=== PATIENT | female | born 1985 | race African-American/Black ===

== ENCOUNTER 2017-02-02 13:02 | Emergency (ER) | payer OTHER ==
[~2017-02-02] VITALS: Ht 149.9 cm; Wt 51.7 kg
[~2017-02-02 13:02] MED LIST: CYCLOBENZAPRINE10 M7 PO; FLEXERIL PO; MOTRIN800 MG PO; NEURONTIN300 MG PO; NORCO 10/325 MG1 TAB PO
[2017-02-02 13:30] VITALS: BP 127/71
--- NOTE | 2017-02-02 17:20 | NUR ---
PATIENT CALLED FROM LOBBY AT THIS TIME NO ANSWER PATIENT IS LWBS.
== END 2017-02-02 17:20 | disposition left against medical advice (07) ==
LOC: MED 13:02
DX: M79.645 Pain in left finger(s) (principal); Z53.21 Procedure and treatment not carried out due to patient leaving prior to being seen by health care provider

== ENCOUNTER 2017-10-27 13:16 | Emergency (ER) | payer OTHER ==
[~2017-10-27] VITALS: Ht 149.9 cm; Wt 50.0 kg
[~2017-10-27 13:16] MED LIST changes: +ACET-787 PO; +CYCL10TA79 PO; -CYCLOBENZAPRINE10 M7 PO; +GABA300C PO; +IBUP-974 PO; -MOTRIN800 MG PO; -NEURONTIN300 MG PO; -NORCO 10/325 MG1 TAB PO
[2017-10-27 13:27] VITALS: BP 150/80
--- NOTE | 2017-10-27 15:40 | NUR ---
PATIENT TO BED 12.
--- NOTE | 2017-10-27 15:41 | NUR ---
32/F BIB SELF C/O COUGH, FLU SYMPTOMS X 8 DAYS. PT ALSO C/O ABDOMINAL PAIN & N/V/D SINCE TUESDAY. HX 3 BULGING DISC, CVA (AGE 23), NM (APRIL). SKIN IS PINK/WARM/DRY; AAOX4 WITH EVEN AND STEADY GAIT; LUNGS CLEAR BL; PT DENIES ANY FEVER, CP, SOB AT THIS TIME; PATIENT STATES PAIN OF90/10 AT THIS TIME; PATIENT POSITIONED FOR COMFORT; HOB ELEVATED; BEDRAILS UP X2; BED DOWN. ER MD MADE AWARE OF PT STATUS.
--- NOTE | 2017-10-27 16:17 | NUR ---
Patient being evaluated by DR PUENTE at bedside.
[2017-10-27] MEDS ORDERED: KETOROLAC 60 MG/2 ML VIAL IM ONE (16:25)
[2017-10-27] MEDS ORDERED: ONDANSETRON 4 MG ODT PO ONE (16:25)
[2017-10-27 17:15] VITALS: BP 104/73
--- NOTE | 2017-10-27 17:15 | NUR ---
Patient discharged with v/s stable. Written and verbal after care instructions given and explained. Patient alert, oriented and verbalized understanding of instructions. Ambulatory with steady gait. All questions addressed prior to discharge. ID band removed. Patient advised to follow up with PMD. Rx of CIPRO, ZOFRAN & MOTRIN given. Patient educated on indication of medication including possible reaction and side effects. Opportunity to ask questions provided and answered.
== END 2017-10-27 17:15 | disposition home or self-care (01) ==
LOC: MED 13:16
DX: R10.13 Epigastric pain (principal); R11.2 Nausea with vomiting, unspecified; R19.7 Diarrhea, unspecified; Z88.8 Allergy status to other drugs, medicaments and biological substances
CPT/HCPCS: 81002; 81025; 96372; 99283; J1885; S0119

== ENCOUNTER 2019-04-14 03:45 | Emergency (ER) | payer OTHER ==
[~2019-04-14] VITALS: Ht 149.9 cm; Wt 54.4 kg
[2019-04-14 04:02] VITALS: BP 116/76
--- NOTE | 2019-04-14 04:02 | NUR ---
AMBULATED TO ER BED 2
--- NOTE | 2019-04-14 04:10 | NUR ---
PT CAME TO ER C/O OF COUGH X2 WEEKS. PER PT COUGH IS PRODUCTIVE WITH GREEN PHLEGM. PT STATED "I VOMITED X4 TODAY AND VOMITED BLOOD." PT C/O OF THROAT PAIN 9/10, BURNING. PT DOES NOT HAVE FEVER. DENIES N/V/D. MED HX: CVA, DEPRESSION, AND ANXIETY. SAFETY MEASURES IN PLACE. WAITING FOR ERMD TO EVALUATE PT.
[2019-04-14] MEDS ORDERED: IBUPROFEN 800 MG TAB PO ONE (04:20)
[2019-04-14] MEDS ORDERED: AZITHROMYCIN 250 MG TAB PO ONE (04:20)
[2019-04-14] MEDS ORDERED: LIDOCAINE VISCOUS 2% 20 ML UDC PO ONE (04:20)
--- NOTE | 2019-04-14 04:20 | NUR ---
ERMD AT BEDSIDE
[2019-04-14 04:45] VITALS: BP 116/76
--- NOTE | 2019-04-14 04:57 | NUR ---
Patient discharged with v/s stable. Written and verbal after care instructions given and explained. PT WAS ENCOURAGED TO DRINK FLUIDS, REST, AND TAKE MEDICATIONS PRESCRIBED. Patient alert, oriented and verbalized understanding of instructions. Ambulatory with steady gait. All questions addressed prior to discharge. ID band removed. Patient advised to follow up with PMD. Rx of LIDOCAINE, AZITHROMYCIN, MOTRIN, AND PROMETHAZINE WAS given. Patient educated on indication of medication including possible reaction and side effects. Opportunity to ask questions provided and answered.
== END 2019-04-14 04:45 | disposition home or self-care (01) ==
LOC: MED 03:45
DX: J02.8 Acute pharyngitis due to other specified organisms (principal); Z88.8 Allergy status to other drugs, medicaments and biological substances; Z79.1 Long term (current) use of non-steroidal anti-inflammatories (NSAID); Z79.899 Other long term (current) drug therapy
CPT/HCPCS: 99284

== ENCOUNTER 2021-01-08 15:39 | Emergency (ER) | payer OTHER ==
[~2021-01-08] VITALS: Ht 157.5 cm; Wt 56.7 kg
[~2021-01-08 15:39] MED LIST changes: -ACET-787 PO; +HYDR-5191 PO
[2021-01-08 15:43] VITALS: BP 141/67
--- NOTE | 2021-01-08 16:00 | NUR ---
Patient is a 35 y/o female c/c abnormal lab tests; patient referred by PMD. Patient is 12 weeks . Patient denies n/v/d, fever, chills, CP, SOB, headache, dizziness or blurry vision. PMH: htn Meds: n/a Allergies: nalbuphine, thithixene
--- NOTE | 2021-01-08 16:10 | NUR ---
Provider at the bedside evaluating patient.
--- NOTE | 2021-01-08 16:17 | NUR ---
graphic arts technician at the bedside.
[2021-01-08] MEDS ORDERED: PENICILLIN G BENZATHINE L-A 1.2 MU/2 ML SYR IM ONE (16:20)
[2021-01-08 16:47] VITALS: BP 141/67
--- NOTE | 2021-01-08 16:48 | NUR ---
Patient discharged with v/s stable. Written and verbal after care instructions given and explained. Patient verbalized understanding. Ambulatory with steady gait. All questions addressed prior to discharge. Advised to follow up with PMD.
== END 2021-01-08 16:48 | disposition home or self-care (01) ==
LOC: MED 15:39
DX: O98.111 Syphilis complicating pregnancy, first trimester (principal); I10 Essential (primary) hypertension; Z3A.11 11 weeks gestation of pregnancy; Z86.73 Personal history of transient ischemic attack (TIA), and cerebral infarction without residual deficits; Z88.8 Allergy status to other drugs, medicaments and biological substances
CPT/HCPCS: 96372; 99283; J0561

== ENCOUNTER 2021-01-15 14:41 | Emergency (ER) | payer OTHER ==
[~2021-01-15] VITALS: Ht 149.9 cm; Wt 55.3 kg
[2021-01-15 14:50] VITALS: BP 113/66
[2021-01-15] MEDS ORDERED: PENICILLIN G BENZATHINE L-A 1.2 MU/2 ML SYR IM ONE (14:55)
--- NOTE | 2021-01-15 15:33 | NUR ---
PT PRESENTS FOR SECOND DOSE OF ANTIBACTERIAL SHOT FOR SYPHILIS INFECTION. PATIENT IS 12 WEEKS AT THIS TIME. PT IS ASYMPTOMATIC, DENIES ANY VAGINAL BLEEDING OR ANY ABD PAIN.
[2021-01-15 15:38] VITALS: BP 113/66
== END 2021-01-15 15:39 | disposition home or self-care (01) ==
LOC: MED 14:41
DX: O98.111 Syphilis complicating pregnancy, first trimester (principal); I10 Essential (primary) hypertension; Z86.73 Personal history of transient ischemic attack (TIA), and cerebral infarction without residual deficits; Z88.8 Allergy status to other drugs, medicaments and biological substances
CPT/HCPCS: 96372; 99283; J0561

== ENCOUNTER 2021-01-22 14:59 | Emergency (ER) | payer OTHER ==
[~2021-01-22] VITALS: Ht 157.5 cm; Wt 54.4 kg
[2021-01-22 15:02] VITALS: BP 129/78
[2021-01-22] MEDS ORDERED: PENICILLIN G BENZATHINE L-A 1.2 MU/2 ML SYR IM ONE (15:50)
[2021-01-22 16:13] VITALS: BP 129/78
== END 2021-01-22 16:14 | disposition home or self-care (01) ==
LOC: MED 14:59
DX: A53.9 Syphilis, unspecified (principal); R03.0 Elevated blood-pressure reading, without diagnosis of hypertension; Z86.73 Personal history of transient ischemic attack (TIA), and cerebral infarction without residual deficits; Z88.8 Allergy status to other drugs, medicaments and biological substances; Z79.899 Other long term (current) drug therapy
CPT/HCPCS: 96372; 99283; J0561

== ENCOUNTER 2021-07-24 06:00 | Inpatient (IN) | payer OTHER, SELFPAY ==
[~2021-07-24] VITALS: Ht 149.9 cm; Wt 68.0 kg
[2021-07-24] MEDS ORDERED: LACTATED RINGERS 1,000 ML IV SCH (06:45)
[2021-07-24 07:09] LABS: BASOPHILS % (AUTO) 0.2 % (0.0-2.0); EOSINOPHILS # (AUTO) 0.1 K/uL (0-0.4); EOSINOPHILS % (AUTO) 0.6 % (0.0-4.0); HEMATOCRIT 37.2 % (36-48); HEMOGLOBIN 12.3 g/dL (12.0-16.0); LYMPHOCYTES # (AUTO) 2.4 K/uL (2.5-16.5); LYMPHOCYTES % (AUTO) 19.6 % (20.5-51.1); MEAN CORPUSCULAR HEMOGLOBIN 30 pg (27-31); MEAN CORPUSCULAR HGB CONC 33 g/dL (33-37); MEAN CORPUSCULAR VOLUME 90.2 fL (80-94); MONOCYTES # (AUTO) 1.1 K/uL (0.8-1.0); MONOCYTES % (AUTO) 9.3 % (1.7-9.3); NEUTROPHILS # (AUTO) 8.5 K/uL (1.8-7.7); NEUTROPHILS % (AUTO) 70.3 % (42.2-75.2); PLATELET COUNT (AUTO) 238 K/uL (140-450); RED BLOOD CELL COUNT(AUTO) 4.13 MIL/uL (4.20-5.40); WHITE BLOOD COUNT (AUTO) 12.1 K/uL (4.8-10.8)
[2021-07-24] MEDS ORDERED: MIDAZOLAM 2 MG/2 ML VIAL ONE (07:09)
[2021-07-24] MEDS ORDERED: MORPHINE PRES FREE 10 MG/10 ML AMP IV ONE (07:11)
[2021-07-24 07:23] LABS: PROTHROMBIN TIME 8.7 secs (10.8-13.4)
[2021-07-24] MEDS ORDERED: ceFAZolin 1,000 MG VIAL ONE (07:23)
[2021-07-24 07:25] LABS: ALBUMIN 2.6 g/dL (3.4-5.0); ANION GAP 13.6 (8-16); CARBON DIOXIDE 21.6 mmol/L (21-32); CREATININE 0.9 mg/dL (0.6-1.3); POTASSIUM 4.2 mmol/L (3.5-5.1); TOTAL BILIRUBIN 0.2 mg/dL (0.0-1.0)
[2021-07-24 07:30] LABS: BARBITURATE, URINE NEGATIVE ng/ml (NEG <=200); BENZODIAZEPINE, URINE NEGATIVE ng/mL (NEG <=200); CANNABINOID, URINE NEGATIVE ng/mL (NEG <=50); COCAINE, URINE NEGATIVE ng/mL (NEG <=300); OPIATE, URINE NEGATIVE ng/mL (NEG <=2000); PHENCYCLIDINE SCREEN,URINE NEGATIVE ng/mL (NEG <=25)
[2021-07-24] MEDS ORDERED: PHENYLEPHRINE 10 MG/ML VIAL ONE (07:58)
--- NOTE | 2021-07-24 08:18 | NUR ---
attended delivery of patient in the OR, baby came out needing orally suctioned, clear/pink fluid noted in oral cavity, patient started crying after suctioning oral airway. patient had good color tone and breathing on his own. stayed with baby and rn until cleared to go.
[2021-07-24] MEDS ORDERED: diphenhydrAMINE 50 MG/ML VIAL IVP PRN ×2 (08:25)
[2021-07-24] MEDS ORDERED: ONDANSETRON 4 MG/2 ML VIAL IVP PRN ×2 (08:25)
[2021-07-24] MEDS ORDERED: MEPERIDINE 25 MG/ML SYR IVP PRN (08:25)
[2021-07-24] MEDS ORDERED: NALOXONE 0.4 MG/ML VIAL IVP PRN ×3 (08:25)
[2021-07-24] MEDS ORDERED: OXYTOCIN 20 UNITS in LACTATED RINGERS 1,000 ML IV SCH (08:25)
[2021-07-24] MEDS ORDERED: HYDROmorphone 1 MG/ML AMP IVP PRN (08:25)
[2021-07-24 08:27] LABS: URIC ACID 5.6 mg/dL (2.6-7.2)
[2021-07-24 08:48] LABS: APPEARANCE,URINE CLEAR (CLEAR); BILIRUBIN,URINE NEGATIVE (NEGATIVE); BLOOD, URINE 1+ (NEGATIVE); COLOR,URINE YELLOW (YELLOW); LEUKOCYTE ESTERASE ,URINE NEGATIVE (NEGATIVE); NITRITE, URINE NEGATIVE (NEGATIVE); PH,URINE 6.5 (5.0-9.0); UGLUCOSE NEGATIVE (NEGATIVE)
[2021-07-24 09:04] LABS: RBC,URINE 0-5 /HPF (0-5); WBC,URINE 0-5 /HPF (0-5)
--- NOTE | 2021-07-24 09:21 | NUR ---
PATIENT HAS BEEN SCREENED AND CATEGORIZED LOW NUTRITION RISK. PATIENT WILL BE SEEN WITHIN 7 DAYS OF ADMISSION. 07/30/21 REVIEWED BY ANIKA COR[address]
[2021-07-24] MEDS: KETOROLAC 30 MG/ML VIAL IM/IVP SCH ×2 (12:10→18:25)
[2021-07-24] MEDS: OXYTOCIN 20 UNITS in LACTATED RINGERS 1,000 ML IV SCH (16:10)
[2021-07-24] MEDS ORDERED: SIMETHICONE 80 MG TAB.CHEW PO PRN (17:05)
[2021-07-24] MEDS ORDERED: bisacodyL 10 MG SUPP RC PRN (17:05)
[2021-07-24] MEDS ORDERED: IBUPROFEN 600 MG TAB PO PRN (17:15)
[2021-07-24] MEDS ORDERED: ONDANSETRON 4 MG TAB PO PRN (17:15)
[2021-07-24] MEDS: bisacodyL 5 MG TABEC PO SCH (21:00)
[2021-07-25] MEDS ORDERED: OXYTOCIN 20 UNITS/LR PREMIX 1,000 ML IV ONE (01:01)
[2021-07-25] MEDS: OXYTOCIN 20 UNITS in LACTATED RINGERS 1,000 ML IV SCH (01:09)
[2021-07-25] MEDS: KETOROLAC 30 MG/ML VIAL IM/IVP SCH (01:11)
[2021-07-25] MEDS ORDERED: KETOROLAC 15 MG/ML VIAL IM PRN (05:05)
[2021-07-25 06:33] LABS: BASOPHILS % (AUTO) 0.2 % (0.0-2.0); EOSINOPHILS # (AUTO) 0.1 K/uL (0-0.4); EOSINOPHILS % (AUTO) 0.4 % (0.0-4.0); HEMATOCRIT 33.1 % (36-48); HEMOGLOBIN 11.2 g/dL (12.0-16.0); LYMPHOCYTES # (AUTO) 1.9 K/uL (2.5-16.5); LYMPHOCYTES % (AUTO) 13.8 % (20.5-51.1); MEAN CORPUSCULAR HEMOGLOBIN 30 pg (27-31); MEAN CORPUSCULAR HGB CONC 34 g/dL (33-37); MEAN CORPUSCULAR VOLUME 89.7 fL (80-94); MONOCYTES # (AUTO) 1.1 K/uL (0.8-1.0); MONOCYTES % (AUTO) 7.6 % (1.7-9.3); NEUTROPHILS # (AUTO) 10.7 K/uL (1.8-7.7); PLATELET COUNT (AUTO) 209 K/uL (140-450); RED BLOOD CELL COUNT(AUTO) 3.69 MIL/uL (4.20-5.40); RED CELL DISTRIBUTION WIDTH 18.1 % (11.6-13.7); WHITE BLOOD COUNT (AUTO) 13.8 K/uL (4.8-10.8)
[2021-07-25 08:07] LABS: HEPATITIS B SURFACE ANTIGEN Negative (Negative)
[2021-07-25] MEDS: bisacodyL 5 MG TABEC PO SCH ×2 (09:02→20:14)
[2021-07-25] MEDS ORDERED: CAMERA MC ONE (20:09)
[2021-07-25] MEDS ORDERED: FLU VACCINE QS2021-22 0.5 ML SYR IMVAC ONE (21:00)
[2021-07-26] MEDS ORDERED: IBUPROFEN 800 MG TAB ONE (07:39)
[2021-07-26] MEDS: bisacodyL 5 MG TABEC PO SCH (08:57)
[2021-07-26] MEDS ORDERED: SODIUM PHOSPHATE 118 ML ENEM RC SCH (09:00)
[2021-07-31] MEDS ORDERED: IBUPROFEN 800 MG TAB PO PRN (07:55)
== END 2021-07-26 14:15 | disposition home or self-care (01) | DRG 787 ==
LOC: MLD 06:00 → MFCC 10:15
PROVIDERS: ADMIT Obstetrics & Gynecology; ATTEND Obstetrics & Gynecology
PROC: 10D00Z1 Extraction of Products of Conception, Low, Open Approach (ICD-10-PCS; principal; 2021-07-24 07:45)
DX: O34.211 Maternal care for low transverse scar from previous cesarean delivery (principal); D62 Acute posthemorrhagic anemia; O99.02 Anemia complicating childbirth; O69.81X0 Labor and delivery complicated by cord around neck, without compression, not applicable or unspecified; Z20.822 Contact with and (suspected) exposure to COVID-19; Z37.0 Single live birth; Z3A.39 39 weeks gestation of pregnancy; Z88.8 Allergy status to other drugs, medicaments and biological substances
CPT/HCPCS: 36415; 80053; 80305; 81001; 84550; 85025; 85610; 85730; 86592; 86762; 86886; 86900; 86901; 87340; 90715; J0690; J1200; J1885; J2250; J2270; J2370; J2405; J2590; J7060; J7120